=== PATIENT | male | born 1945 | race Caucasian/White ===

== ENCOUNTER 2016-09-13 12:20 | Day surgery (SDC) | payer MEDICARE, BC ==
[2016-09-13] MEDS ORDERED: MIDAZOLAM HCL 2MG/2ML VIAL IV ONE (14:00)
[2016-09-13] MEDS ORDERED: PROPOFOL 10 MG/ML VIAL IV ONE (14:00)
[2016-09-13] MEDS ORDERED: LIDOCAINE 2% MDV (20MG/ML) 20ML VIAL IV ONE (14:00)
--- NOTE | 2016-09-17 16:50 | Operative Note ---
DATE OF SURGERY: 09/13/2016 OPERATION: COLONOSCOPY to the cecum with cold snare polypectomy. INDICATION: Prior history of adenomatous polyps. The patient returns at this time for surveillance. ANESTHESIA: Intravenous sedation was administered by the department of anesthesiology and included Diprivan titrated to effect. PROCEDURE: Following informed consent from this alert individual including a discussion of the risks and benefits of the procedure and an opportunity for the patient to ask questions, the patient was in the left lateral decubitus position. A digital rectal examination was performed. No abnormalities were noted. Following this, the Olympus [id number] video colonoscope was inserted into the rectum without resistance. The rectal mucosa had a normal appearance with normal folds and distensibility. The colonoscope was advanced up through the colon to the level of the cecum without much difficulty. Throughout the bowel the mucosa appeared normal, the folds were normal, and the bowel was fairly well distensible. The bowel was somewhat redundant and abdominal pressure support was supplied by the nursing staff to facilitate reaching the cecum. The cecum was well defined by noting the ileocecal valve and appendiceal orifice. From the base of the cecum, the colonoscope was then withdrawn. The colon preparation was good. At the level of the hepatic flexure, there was a 4 mm sessile polyp noted which was removed with cold snare polypectomy and suctioned through the colonoscope into a collection trap. The remainder of the bowel was endoscopically completely unremarkable. Retroflexion within the rectum was endoscopically normal. The instrument was straightened and withdrawn. The patient tolerated the procedure well and was returned to the recovery area in stable condition. IMPRESSION: A 4 mm polyp removed from the hepatic flexure with cold snare polypectomy. RECOMMENDATIONS: The patient was advised he should receive a copy of his pathology report at home in the next 2-3 weeks. If not, he was asked to call my office to review the results of testing today. Further recommendations forthcoming pending those results. Followup will be with Dr. Terrell Corona as well. As always, thank you for allowing me to participate in the care of your patient. Manohar Rodriguez, CC: Dr. Cj MCADAMS
== END 2016-09-13 15:02 | disposition home or self-care (01) ==
LOC: HOP 12:20
PROVIDERS: ATTEND Internal Medicine Gastroenterology
DX: Z12.11 Encounter for screening for malignant neoplasm of colon (principal); D12.3 Benign neoplasm of transverse colon; I10 Essential (primary) hypertension; E78.00 Pure hypercholesterolemia, unspecified